=== PATIENT | male | born 1935 | race Caucasian/White ===

== ENCOUNTER 2017-08-06 09:50 | Day surgery (SDC) | payer OTHER ==
[~2017-08-06] VITALS: Ht 174 cm; Wt 111.6 kg
[~2017-08-06 09:50] MED LIST: AMIODARONE HCL200 MG PO; ASCORBIC ACID500 M3 PO; ASPIR-LOW81 MG PO; ASPIRIN81 M1 PO; ATIVAN2 MG PO; ATORVASTATIN CA40 MG PO; Aspirin E.C. PO; CARDIZEM CD,CA180 MG PO; CILOSTAZOL100 MG PO; CLEOCIN300 MG PO; CORDARONE200 MG PO; Colace PO; Combivent IH; Cordarone, Pacerone PO; DILAUDID4 MG PO; EXTRA STRENGTH500 M1 PO; FINASTERIDE5 MG PO; FLOMAX0.4 MG PO; Flomax PO; HYDROCHLOROTH12.5 M3 PO; HYTRIN5 MG PO; LIPITOR20 MG PO; LOPRESSOR50 MG PO; LOSARTAN POTAS100 MG PO; Lasix PO; Levaquin PO; Lipitor PO; Lopressor PO; METOPROLOL PO; METOPROLOL TART50 MG PO; MULTIVITAMIN1 EAC2 PO; NITROGLYCERIN0.4 MG SL; NITROSTAT0.4 MG SL; OS-CAL 500+D T1 EAC1 PO; Oscal 500 w/Vitamin PO; PANTOPRAZOLE SO40 MG PO; PLAVIX75 MG PO; PLETAL100 MG PO; PREVACID15 MG PO; PROSCAR5 MG PO; Pletal PO; Proscar PO; Protonix PO; Senokot S,Pericolace PO; TRAMADOL HCL50 MG PO; Theragran PO; Tylenol Regular Stre PO; Ultram PO; XARELTO10 MG PO; XARELTO15 MG PO; Xarelto PO; ZESTRIL,PRINIVI20 MG PO; ZOCOR40 MG PO
== END 2017-08-06 12:50 | disposition home or self-care (01) ==
LOC: CATH 09:50
PROC: 5A2204Z Restoration of Cardiac Rhythm, Single (ICD-10-PCS; principal; 2017-08-06)
DX: I48.4 Atypical atrial flutter (principal); I47.1 Supraventricular tachycardia; I48.1 Persistent atrial fibrillation; I10 Essential (primary) hypertension; I25.10 Atherosclerotic heart disease of native coronary artery without angina pectoris; E11.9 Type 2 diabetes mellitus without complications; E78.5 Hyperlipidemia, unspecified; I73.9 Peripheral vascular disease, unspecified; E66.3 Overweight; Z68.39 Body mass index [BMI] 39.0-39.9, adult; Z79.82 Long term (current) use of aspirin; Z86.73 Personal history of transient ischemic attack (TIA), and cerebral infarction without residual deficits; Z87.891 Personal history of nicotine dependence; Z95.1 Presence of aortocoronary bypass graft
CPT/HCPCS: 93005

== ENCOUNTER 2017-10-03 12:59 | Emergency (ER) | payer OTHER ==
[~2017-10-03] VITALS: Ht 172.7 cm; Wt 113.0 kg
[2017-10-03 17:35] VITALS: BP 148/86
== END 2017-10-03 17:36 | disposition home or self-care (01) ==
LOC: EME 12:59
PROC: 3E0234Z Introduction of Serum, Toxoid and Vaccine into Muscle, Percutaneous Approach (ICD-10-PCS; principal; 2017-10-03)
DX: S60.511A Abrasion of right hand, initial encounter (principal); W55.01XA Bitten by cat, initial encounter; Z23 Encounter for immunization; I10 Essential (primary) hypertension; Z95.1 Presence of aortocoronary bypass graft; Z86.718 Personal history of other venous thrombosis and embolism; Z79.01 Long term (current) use of anticoagulants; Z79.82 Long term (current) use of aspirin; Z87.891 Personal history of nicotine dependence
CPT/HCPCS: 73130; 99281; 99284

== ENCOUNTER 2017-10-06 11:27 | Emergency (ER) | payer OTHER ==
[~2017-10-06] VITALS: Ht 172.7 cm; Wt 115.2 kg
[2017-10-06 11:34] VITALS: BP 171/98
== END 2017-10-06 12:49 | disposition home or self-care (01) ==
LOC: EME 11:27
PROC: 3E0234Z Introduction of Serum, Toxoid and Vaccine into Muscle, Percutaneous Approach (ICD-10-PCS; principal; 2017-10-06)
DX: Z20.3 Contact with and (suspected) exposure to rabies (principal); Z23 Encounter for immunization; S61.431D Puncture wound without foreign body of right hand, subsequent encounter; W55.01XD Bitten by cat, subsequent encounter
CPT/HCPCS: 99281; 99283